=== PATIENT | female | born 1945 | race Caucasian/White ===

== ENCOUNTER 2022-07-19 07:40 | Day surgery (SDC) | payer OTHER ==
[2022-07-19] MEDS ORDERED: Ringers Lactate 1,000 ML IV ONE (08:02)
[2022-07-19] MEDS ORDERED: propofoL 200 MG/20 ML VIAL IV ONE (10:13)
[2022-07-19] MEDS ORDERED: ROCURONIUM 50 MG/5 ML VIAL IV ONE (10:13)
[2022-07-19] MEDS ORDERED: LIDOCAINE 2% MPF 5 ML VIAL ONE (10:13)
[2022-07-19] MEDS ORDERED: FENTANYL CITR 100 MCG/2 ML ONE (10:13)
[2022-07-19] MEDS ORDERED: MIDAZOLAM HCL 2 MG/2 ML INJ ONE (10:13)
[2022-07-19] MEDS ORDERED: dexAMETHasone 10 MG/ML VIAL ONE (10:13)
[2022-07-19] MEDS ORDERED: ONDANSETRON 4 MG/2 ML VIAL ONE (10:14)
[2022-07-19] MEDS ORDERED: OXYMETAZOLINE HCL 0.05% 15ML NAS ONE (10:23)
[2022-07-19] MEDS ORDERED: EPINEPHRINE/PF 1 MG/ML AMP ONE (10:24)
[2022-07-19] MEDS ORDERED: LIDOCAINE 1.5% W/EPI AMP 5 ML ONE (10:24)
[2022-07-19] MEDS ORDERED: BUPIVACAINE 0.25% PF 10 ML VIAL ONE (10:25)
[2022-07-19] MEDS ORDERED: GLYCOPYRROLATE 0.2 MG/ML SYR ONE (10:58)
[2022-07-19] MEDS: HYDROMORPHONE HCL 1 MG/ML INJ ONE ×2 (11:54→12:06)
[2022-07-19 12:41] VITALS: BP 149/72; TEMP 97
[2022-07-19] MEDS ORDERED: CODEINE 12mg/APAP 120mg PER 5 ML UCUP ONE (13:03)
[2022-07-19 14:03] VITALS: O2SAT 100
--- NOTE | 2022-07-19 18:26 | OP ---
Date of Procedure: 07/19/2022 Surgeon: SHAVON MOREJON Referring Physician: Primary care physician. Preoperative Diagnoses: 1. 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 2. 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 Postoperative Diagnoses: Left tonsil neoplasm - uncertain behavior. Procedures Performed: 1. Microscopic direct laryngoscopy of the oropharynx, hypopharynx, and larynx. 2. Tonsillectomy. Anesthesia: General endotracheal anesthesia was administered. I also infiltrated approximately 5 mL of 1.5% lidocaine with 1:200,000 epinephrine into bilateral tonsillar fossae. Estimated Blood Loss: Scant, less than 2 mL. Specimens: Bilateral tonsils submitted to pathology for evaluation. The tonsils were submitted separately. Findings: 1. Friable left tonsil - suspicious for malignancy with fascicular mucosa. 2. Left tonsil normal size, but the patient had tonsil stones and inflammation. Tonsil size was 2/4 on the right and 3-3+/4 on the left; hypopharynx and larynx were normal. No evidence of neoplasm including benign or suspected malignant lesions, nodules, polyps. True and false vocal folds were intact. The patient did have redundant mucosa. Epiglottis normal as was the base of tongue and hypopharynx including bilateral piriform sinuses and posterior cricoid area and posterior pharyngeal wall. Complications: None. Disposition: Stable. The patient tolerated the procedure well. Indication For Procedure: The patient is a pleasant 76-year-old female, who presented to my outpatient clinic as obtaining a clearance for upcoming left hip surgery. She was examined by her surgeon and the surgeon found that she had an inflamed left tonsil and she told the patient to get an ENT clearance before she could do the surgery. She presented to my office with no pain whatsoever in the throat and no complaints of odynophagia or dysphagia, and she reported no swelling whatsoever. However, on exam, the patient did have significantly inflamed left tonsil with evidence of halitosis and necrosis and tonsil was significantly large 3-3+/4 with surrounding erythema. Right tonsil appeared normal. Flexible nasopharyngeal laryngoscope was performed and there was some friable mucosa noted around the larynx, although was hard to fully visualize secondary to excessive the patient's movement and frequent coughing throughout the exam. These were indications to bring the patient to the operative suite for the above-mentioned procedure. She understood, all questions were answered. Risks versus benefits and complications were explained in detail and a consent form was signed, which placed on the chart. Description Of Procedure: The patient was transferred from the preoperative holding area to the operative suite by Department of Anesthesia, placed on the operating table supine, sedated and intubated in normal fashion. Table was rotated 90 degrees and a shoulder roll was placed. The chin was flexed to the neck and the head was extended posteriorly to allow adequate visualization of the larynx. A rigid laryngoscope was introduced into the right oral commissure and directed along the endotracheal tube and once down to the level of the larynx, it was suspended from the French stand. I did not detect any abnormalities whatsoever of the true and false vocal folds, arytenoid complex. Moreover, I did not detect any abnormal lesions of the epiglottis-- there was a white patchy area of the mucosa on the in-office scope but I did not see that today. The patient was then de-suspended with all areas of the hypopharynx including posterior cricoid, posterior pharyngeal wall, piriform sinuses and I did not detect any abnormalities whatsoever. The scope was withdrawn to the level of the base of tongue. I did not see any evidence of neoplasm in this area. The scope was completely withdrawn. Bimanual palpation exam of the neck and oral cavity did not demonstrate any other abnormalities with the exception of the left tonsil. No lymph nodes palpated in cervical neck. Next, our attention was placed to the tonsils. A McIvor retractor was introduced to the right oral commissure and draped along the endotracheal tube and suspended from [place] stand. Tonsils were removed by retracting the superior poles midline with straight Allis clamps dissecting through the mucosa down the peritonsillar fascial planes with monopolar electrocautery cautery on the twentieth setting of coagulation. Dissection continued within the planes bilaterally and then the inferior poles were amputated with suction Bovie. There was surprisingly minimal bleeding of the left tonsil. Despite the friable nature of the tonsil, I was able to remove them without tearing and these were handed off the field for pathology. All areas of bleeding were cauterized with suction Bovie. I introduced saline irrigation to the oral cavity and removed with suction Bovie. I introduced 2 red rubber catheters to examine the nasopharynx and we held the red rubber catheters in place with long hemostat. 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 I then removed the red rubber catheters and introduced a flexible orogastric tube into the esophagus and stomach and all fluid contents were removed. I then infiltrated approximately 5 mL 1.5% lidocaine with 1:200,000 epinephrine into bilateral tonsillar fossae and soft palate. The patient was then de-suspended from the [place] stand and the McIvor retractor was removed. The patient's jaw was checked and found to be in proper alignment. Shoulder roll was removed as was the head turban. She was then transferred back to Department of Anesthesia in stable condition where she was subsequently awakened, extubated, and transferred to postoperative care in stable condition. She will be discharged home on analgesic medication and will follow up in 1-2 weeks or sooner if needed. LULA/ERNESTO Voice ID: [id number] Report ID: [id number]
== END 2022-07-19 14:28 | disposition home or self-care (01) ==
LOC: OR 07:40
PROVIDERS: ATTEND Otolaryngology Facial Plastic Surgery
PROC: 0CJS8ZZ Inspection of Larynx, Via Natural or Artificial Opening Endoscopic (ICD-10-PCS; principal; 2022-07-19 09:30)
PROC: 0CTPXZZ Resection of Tonsils, External Approach (ICD-10-PCS; 2022-07-19 09:30)
DX: C09.9 Malignant neoplasm of tonsil, unspecified (principal)
CPT/HCPCS: 31526; 42826; 88304; J2704; J0171; J2001; J2250; J3010; J1100; J1170; J7120; J2405